=== PATIENT | female | born 1945 | race Caucasian/White ===

== ENCOUNTER → 2023-09-24 12:32 | Outpatient (REF) | payer MEDICARE, SELFPAY | LOC: WOUND 12:32 | PROVIDERS: ATTENDING PHYSICIAN Surgery; FAMILY PHYSICIAN Family Medicine | DX: T81.41XA Infection following a procedure, superficial incisional surgical site, initial encounter (principal); S31.000A Unspecified open wound of lower back and pelvis without penetration into retroperitoneum, initial encounter; Z79.01 Long term (current) use of anticoagulants; E11.65 Type 2 diabetes mellitus with hyperglycemia; I10 Essential (primary) hypertension; I65.23 Occlusion and stenosis of bilateral carotid arteries; X58.XXXA Exposure to other specified factors, initial encounter | CPT/HCPCS: 11042; 99213 ==

== ENCOUNTER → 2023-10-01 10:50 | Outpatient (REF) | payer MEDICARE, SELFPAY | LOC: WOUND 10:50 | PROVIDERS: ATTENDING PHYSICIAN Surgery; FAMILY PHYSICIAN Family Medicine | DX: T81.41XA Infection following a procedure, superficial incisional surgical site, initial encounter (principal); S31.000A Unspecified open wound of lower back and pelvis without penetration into retroperitoneum, initial encounter; Z79.01 Long term (current) use of anticoagulants; E11.65 Type 2 diabetes mellitus with hyperglycemia; I10 Essential (primary) hypertension; I65.23 Occlusion and stenosis of bilateral carotid arteries; X58.XXXA Exposure to other specified factors, initial encounter | CPT/HCPCS: 11042 ==

== ENCOUNTER → 2023-10-10 10:55 | Outpatient (REF) | payer MEDICARE, SELFPAY | LOC: WOUND 10:55 | PROVIDERS: ATTENDING PHYSICIAN Surgery; FAMILY PHYSICIAN Family Medicine | DX: T81.41XA Infection following a procedure, superficial incisional surgical site, initial encounter (principal); S31.000A Unspecified open wound of lower back and pelvis without penetration into retroperitoneum, initial encounter; E11.65 Type 2 diabetes mellitus with hyperglycemia; I10 Essential (primary) hypertension; I65.23 Occlusion and stenosis of bilateral carotid arteries; Z79.01 Long term (current) use of anticoagulants; Y83.8 Other surgical procedures as the cause of abnormal reaction of the patient, or of later complication, without mention of misadventure at the time of the procedure; X58.XXXA Exposure to other specified factors, initial encounter | CPT/HCPCS: 11042 ==

== ENCOUNTER → 2023-10-17 11:00 | Outpatient (REF) | payer MEDICARE, SELFPAY | LOC: WOUND 11:00 | PROVIDERS: ATTENDING PHYSICIAN Surgery; FAMILY PHYSICIAN Family Medicine | DX: T81.41XA Infection following a procedure, superficial incisional surgical site, initial encounter (principal); S31.000A Unspecified open wound of lower back and pelvis without penetration into retroperitoneum, initial encounter; Z79.01 Long term (current) use of anticoagulants; E11.65 Type 2 diabetes mellitus with hyperglycemia; I10 Essential (primary) hypertension; I65.23 Occlusion and stenosis of bilateral carotid arteries; X58.XXXA Exposure to other specified factors, initial encounter | CPT/HCPCS: 97597 ==

== ENCOUNTER → 2023-10-21 11:28 | Outpatient (REF) | payer MEDICARE, SELFPAY ==
[2023-10-21 12:26] LABS: % Basophils 0.3 % (0-2); % Eosinophils 2.6 % (0-6); % Immature Granulocytes 0.3 % (0-0.5); % Monocytes 9.5 % (1.7-9.3); % Neutrophils 60.3 % (42.2-75.2); Absolute Eosinophils 0.2 10^3/uL (0-0.7); Absolute Lymphocytes 1.9 10^3/uL (1.2-3.4); Absolute Monocytes 0.7 10^3/uL (0.1-0.6); Absolute Neutrophils 4.3 10^3/uL (1.4-6.5); Hemoglobin 12.9 g/dL (12.0-16.0); Mean Corp Hgb Conc. 33.9 g/dL (33.0-37.0); Mean Corpuscular Hgb 33.2 pg (27.0-31.0); Mean Corpuscular Volume 97.7 fL (81.0-99.0); Mean Platelet Volume 9.8 fL (7.4-10.4); Nucleated Red Blood Cells % 0 %; Platelet Count 276 10^3/uL (130-400); Red Blood Cell Count 3.89 10^6/uL (4.20-5.40); Red Cell Dist. Width 13.6 % (11.5-14.5); White Blood Cell Count 7.2 10^3/uL (4.8-10.8)
[2023-10-21 13:34] LABS: Blood Urea Nitrogen 32 mg/dl (7-17); Calcium 10.4 mg/dl (8.4-10.2); Carbon Dioxide 27 mmol/L (22-30); Chloride 95 mmol/L (98-107); Glucose 82 mg/dl (70-99); Sodium 135 mmol/L (135-145); eGFR > 60.00
[2023-10-25 20:14] LABS: Albumin 4.34 g/dL (3.75-5.01); Alpha 1 Globulin 0.34 g/dL (0.19-0.46); Alpha 2 Globulin 1.01 g/dL (0.48-1.05); Free Kappa Light Chains,Quant 34.87 mg/L (3.30-19.40); Free Lambda Light Chains,Quant 17.61 mg/L (5.71-26.30); IgA 847 mg/dL (68-408); IgG 603 mg/dL (768-1632); IgM 43 mg/dL (35-263); Immunofixation Electrophoresis IFE Done; Kappa/Lambda Fr Light Ratio 1.98 (0.26-1.65); Monoclonal Protein 0.86 g/dL (<=0.00); Total Protein-Electrophoresis 7.8 g/dL (6.3-8.2)
== END ==
LOC: REG 11:28
PROVIDERS: ATTENDING PHYSICIAN Internal Medicine Hematology & Oncology; FAMILY PHYSICIAN Family Medicine
DX: D47.2 Monoclonal gammopathy (principal)
CPT/HCPCS: 36415; 80048; 82784; 83521; 84155; 84165; 85025; 86334

== ENCOUNTER → 2023-10-24 13:54 | Outpatient (REF) | payer MEDICARE, SELFPAY | LOC: WOUND 13:54 | PROVIDERS: ATTENDING PHYSICIAN Surgery; FAMILY PHYSICIAN Family Medicine | DX: T81.41XA Infection following a procedure, superficial incisional surgical site, initial encounter (principal); S31.000A Unspecified open wound of lower back and pelvis without penetration into retroperitoneum, initial encounter; E11.65 Type 2 diabetes mellitus with hyperglycemia; I10 Essential (primary) hypertension; I65.23 Occlusion and stenosis of bilateral carotid arteries; Z79.01 Long term (current) use of anticoagulants; X58.XXXA Exposure to other specified factors, initial encounter | CPT/HCPCS: 99212 ==

== ENCOUNTER → 2023-12-31 07:31 | Outpatient (REF) | payer MEDICARE, SELFPAY ==
[2023-12-31 09:40] LABS: Urine Albumin Negative (Neg - Trace); Urine Bilirubin Negative (Negative); Urine Character Clear (Clear); Urine Color Yellow; Urine Glucose Negative (Negative); Urine Ketone Negative (Negative); Urine Leukocyte Trace (Negative); Urine Nitrite Negative (Negative); Urine Occult Blood Negative (Negative); Urine Specific Gravity 1.005 (<1.030); Urine Urobilinogen Negative (Neg - 1+)
[2023-12-31 09:42] LABS: % Basophils 0.5 % (0-2); % Eosinophils 3.8 % (0-6); % Immature Granulocytes 0.3 % (0-0.5); % Lymphocytes 28.8 % (20.5-51.1); % Monocytes 10.1 % (1.7-9.3); % Neutrophils 56.5 % (42.2-75.2); Absolute Eosinophils 0.2 10^3/uL (0-0.7); Absolute Lymphocytes 1.7 10^3/uL (1.2-3.4); Absolute Monocytes 0.6 10^3/uL (0.1-0.6); Absolute Neutrophils 3.3 10^3/uL (1.4-6.5); Hematocrit 34.1 % (37.0-47.0); Hemoglobin 11.7 g/dL (12.0-16.0); Mean Corp Hgb Conc. 34.3 g/dL (33.0-37.0); Mean Corpuscular Hgb 33.6 pg (27.0-31.0); Mean Platelet Volume 9.8 fL (7.4-10.4); Nucleated Red Blood Cells % 0 %; Platelet Count 240 10^3/uL (130-400); Red Blood Cell Count 3.48 10^6/uL (4.20-5.40); Red Cell Dist. Width 13.4 % (11.5-14.5); White Blood Cell Count 5.8 10^3/uL (4.8-10.8)
[2023-12-31 09:58] LABS: ALT (SGPT) 19 U/L (0-35); AST (SGOT) 30 U/L (14-36); Albumin 4.3 g/dl (3.5-5.0); Alkaline Phosphatase 110 U/L (38-126); Blood Urea Nitrogen 47 mg/dl (7-17); Calcium 9.9 mg/dl (8.4-10.2); Carbon Dioxide 27 mmol/L (22-30); Chloride 99 mmol/L (98-107); Glucose 91 mg/dl (70-99); HDL Cholesterol 57 mg/dl; LDL Cholesterol, Calculated 69 mg/dl; Potassium 4.5 mmol/L (3.5-5.1); Sodium 139 mmol/L (135-145); Total Bilirubin 0.5 mg/dl (0.2-1.3); Total Cholesterol 144 mg/dl (50-199); Total Protein 7.2 g/dl (6.3-8.2); Triglyceride 91 mg/dl (10-149); Very Low Density Lipoprotein 18 mg/dl (0-30); eGFR 45.76
[2023-12-31 10:24] LABS: TSH Reflex To Free T4 3.23 uIU/ml (0.47-4.68)
[2023-12-31 10:38] LABS: Urine Bacteria Few (Negative); Urine Red Blood Cell 0-2 /HPF (0-2); Urine White Cell 0-2 /HPF (0-5)
[2023-12-31 11:58] LABS: Glycohemoglobin (HgbA1c) 5.8 % (4.0-5.6)
[2024-01-01 20:58] LABS: 24 Hour Urine Total Volume Random mL; Urine Collection Length Random hr; Urine Free Kappa Light Chains 3.44 mg/L (0.00-32.90); Urine Free Lambda Light Chains <0.74 mg/L (0.00-3.79)
[2024-01-03 02:22] LABS: Albumin 3.95 g/dL (3.75-5.01); Alpha 1 Globulin 0.26 g/dL (0.19-0.46); Alpha 2 Globulin 0.85 g/dL (0.48-1.05); Monoclonal Protein 0.85 g/dL (<=0.00); SPEP IFE Reflex IFE Done
== END ==
LOC: HWLAB 07:31
PROVIDERS: ATTENDING PHYSICIAN Family Medicine
DX: D47.2 Monoclonal gammopathy (principal); R73.09 Other abnormal glucose; Z00.00 Encounter for general adult medical examination without abnormal findings; E78.5 Hyperlipidemia, unspecified; I10 Essential (primary) hypertension
CPT/HCPCS: 36415; 80053; 80061; 81003; 81015; 83036; 83521; 84155; 84156; 84165; 84443; 85025; 86335

== ENCOUNTER → 2024-01-09 08:44 | Outpatient (REF) | payer MEDICARE, SELFPAY | LOC: RAD 08:44 | PROVIDERS: ATTENDING PHYSICIAN Physician Assistant; FAMILY PHYSICIAN Family Medicine | DX: I73.9 Peripheral vascular disease, unspecified (principal); I65.23 Occlusion and stenosis of bilateral carotid arteries | CPT/HCPCS: 93880; 93922; 93925; 93978 ==

== ENCOUNTER → 2024-04-23 13:58 | Outpatient (REF) | payer MEDICARE, SELFPAY ==
[2024-04-23 15:05] LABS: % Basophils 0.5 % (0-2); % Eosinophils 3.6 % (0-6); % Immature Granulocytes 0.2 % (0-0.5); % Lymphocytes 34.5 % (20.5-51.1); % Monocytes 9.6 % (1.7-9.3); % Neutrophils 51.6 % (42.2-75.2); Absolute Eosinophils 0.2 10^3/uL (0-0.7); Absolute Lymphocytes 2.1 10^3/uL (1.2-3.4); Absolute Monocytes 0.6 10^3/uL (0.1-0.6); Absolute Neutrophils 3.2 10^3/uL (1.4-6.5); Hematocrit 34.8 % (37.0-47.0); Hemoglobin 12.1 g/dL (12.0-16.0); Mean Corp Hgb Conc. 34.8 g/dL (33.0-37.0); Mean Corpuscular Hgb 35.2 pg (27.0-31.0); Mean Corpuscular Volume 101.2 fL (81.0-99.0); Mean Platelet Volume 9.3 fL (7.4-10.4); Nucleated Red Blood Cells % 0 %; Platelet Count 217 10^3/uL (130-400); Red Blood Cell Count 3.44 10^6/uL (4.20-5.40); Red Cell Dist. Width 12.6 % (11.5-14.5); White Blood Cell Count 6.2 10^3/uL (4.8-10.8)
[2024-04-23 15:27] LABS: IgA 742 mg/dl (70-400); IgG 642 mg/dl (700-1600); IgM 33 mg/dl (40-230)
[2024-04-23 15:30] LABS: Blood Urea Nitrogen 37 mg/dl (7-17); Calcium 9.8 mg/dl (8.4-10.2); Carbon Dioxide 25 mmol/L (22-30); Chloride 101 mmol/L (98-107); Glucose 92 mg/dl (70-99); Potassium 4.8 mmol/L (3.5-5.1); Sodium 139 mmol/L (135-145); eGFR 45.48
== END ==
LOC: RAD 13:58
PROVIDERS: ATTENDING PHYSICIAN Nurse Practitioner Adult Health; FAMILY PHYSICIAN Family Medicine
DX: D47.2 Monoclonal gammopathy (principal)
CPT/HCPCS: 36415; 80048; 82784; 83521; 84155; 84165; 85025; 86334

== ENCOUNTER 2024-04-30 14:56 | Observation (INO) | payer MEDICARE, SELFPAY ==
[2024-04-30] VITALS (9 sets, daily range): BP systolic 86–126; BP diastolic 31–77; BMI 36.1; BMI 33.5
--- NOTE | 2024-04-30 13:05 | ED.GENMED ---
History of Present Illness
General
Chief Complaint: Fever
Time Seen by Provider: 04/30/24 12:59
History of Present Illness
History of Present Illness:
79-year-old female with history of A-fib on Eliquis, hypertension, CKD, anemia presenting to the emergency department for generalized weakness. Patient reportedly weak this morning, unable to a ambulate. On arrival, patient noted to be febrile.
Patient without specific complaints. Does admit to generalized weakness, however denies cough, abdominal pain, chest pain, difficulty breathing, dysuria. Patient is slightly slow to respond, somewhat limited historian. No additional history
obtained at this time
Past History
Past History
ED Past Medical History: HTN, Hypercholesterolemia and Other (sleep apnea, monoclonal gammopathy)
ED Past Surgical History: Appendectomy, Orthopedic and Other (lumpectomy)
Social History
Tobacco: Non-smoker
Alcohol: None
Drug: None
Personal:
Living: with family
Phy Exam
Physical Exam
Physical Exam:
General: Warm to touch, slow to respond
HEENT: protecting airway
Neck: appears supple
CV: Normal heart rate, regular rhythm
Resp: No accessory muscle use, no increased work of breathing, lungs clear to auscultation bilaterally
Abd: Soft and non-distended, no tenderness to palpation, normal bowel sounds
Extremities: No deformities, no swelling, no erythema. 4/5 weakness of bilateral lower extremities, symmetric
Neuro: alert, oriented and able to answer questions appropriately, however slow to respond.
: deferred
Rectal: deferred
Psych: Normal affect
Skin: Intact
Sepsis
Sepsis Screening
Sepsis Assessment: Sepsis Ruled Out
Sepsis Screen
Sepsis Screen: Sepsis Ruled Out
Date: 04/30/24
Time: 15:31
Course
Orders/Labs/Results
Orders:
Orders
04/30/24 12:54
Electrocardiogram (*1) Urgent
Reason for Study: Other
Other Reason for Exam: Possible Sepsis
Pulse Ox/cont/shift [RESP] Urgent
Quantity: 1
Special Instructions: CONTINUOUS
04/30/24 12:55
EKG- Treatment ONCE
04/30/24 13:04
COVID-19 Antigen Urgent
Source: Nasal Swab
Complete Blood Count/With Diff Urgent
Comprehensive Metabolic Panel Urgent
Lactic Acid Q4H
Comment: ON ICE, CANCEL 2ND ORDER IF FIRST LACTIC ACID LEVEL <2
Urinalysis Reflex To Culture Urgent
Date Specimen was Collected: 04/30/24
Time Specimen was Collected: 12:55
Blood Culture Urgent
MELISSA Source: Blood/Venous
Specimen Description:
Blood Culture Urgent
MELISSA Source: Blood/Venous
Specimen Description:
INF RAPID [Influenza A+B Rapid Molecular] Urgent
MELISSA Source: Nasal Swab
Specimen Description:
04/30/24 13:08
Chest [CR Chest - 2 Views ] Urgent
Comment:
Reason For Exam: fever
04/30/24 13:14
0.9% Sodium Chloride 1000 ml [Nss] 1,000 ml IV BOLUS
Acetaminophen [Tylenol] 1,000 mg PO NOW STA
04/30/24 14:25
Admit/Transfer Patient As Directed
Co-Sign Provider:
Level of Care: Observation services
Assign to:: Medical/Surgical
Physician / Group: mary
Diagnosis: covid weakness
PRN Pain Medication Management As Directed
May give lesser potent ordered pain med per pt: Yes
preference::
Protocol:: Medication orders for pain may be administered in a
manner that supports deferring to patient preference
when the pt is:
- Requesting an ordered lesser potent pain medication.
Least to most potent pain medications are defined
as: acetaminophen < NSAID < tramadol < opioids
(morphine, oxycodone, hydromorphone).
- Requesting a lesser dose of the same medication IF
ORDERED.
- Requesting a less intrusive route of administration
if both routes are prescribed by the provider (PO <
IV).
04/30/24 14:26
Code Status As Directed
Resuscitation Status: Full Code
04/30/24 17:00
Lactic Acid Q4H
Comment: ON ICE, CANCEL 2ND ORDER IF FIRST LACTIC ACID LEVEL <2
Abnormal Lab Results
04/30/24
13:04
WBC 14.0 H 10^3/uL
(4.8-10.8)
RBC 3.70 L 10^6/uL
(4.20-5.40)
Hct 35.5 L %
(37.0-47.0)
MCH 33.2 H pg
(27.0-31.0)
Abs Immat Gran (auto) 0.2 H 10^3/uL
(0-0.05)
Absolute Neuts (auto) 12.3 H 10^3/uL
(1.4-6.5)
Absolute Lymphs (auto) 0.6 L 10^3/uL
(1.2-3.4)
Absolute Monos (auto) 0.9 H 10^3/uL
(0.1-0.6)
Immature Gran % 1.1 H %
(0-0.5)
Neutrophils % 87.6 H %
(42.2-75.2)
Lymphocytes % 4.3 L %
(20.5-51.1)
BUN 42 H mg/dl
(7-17)
Creatinine 1.2 H mg/dL
(0.6-1.0)
Glucose 111 H mg/dl
(70-99)
AST 37 H U/L
(14-36)
SARS-CoV-2 Antigen Positive A
(Negative)
04/30/24 13:04
04/30/24 13:04
Vital Signs
Initial and Last Documented VS:
Initial Vital Signs
BP
126/52
04/30/24 12:55
Last Documented Vital Signs
Temp Pulse Resp BP Pulse Ox
103.3 F H 71 23 105/39 93
04/30/24 12:58 04/30/24 15:00 04/30/24 15:00 04/30/24 15:00 04/30/24 15:00
MDM/Problems Addressed
MDM/Problems Addressed:
79-year-old female with history of A-fib on Eliquis, hypertension, hyperlipidemia, CKD presenting for generalized weakness and suspected confusion. Vital signs on arrival are significant for fever.
On exam, patient is awake and alert, however does appear slightly confused and slow to respond, however is awake, alert, oriented. Patient is febrile, with suspected infectious etiology, possible sepsis as reason for patient's presenting weakness
and fatigue. Unclear source of patient's fever at this time. Patient without specific symptoms. Will obtain laboratory analysis, blood cultures, lactic acid. Will start IV fluids. Will also send viral panel, urinalysis
14:00 -urine without sign of infection. Patient's COVID is positive. Chest x-ray without significant sign of infection. Holding antibiotics, with suspected source at this time COVID. Given patient's confusion, weakness with difficulty
ambulating, plan for admission
*EKG
Interpreted by ED Provider?: Yes
EKG Intrepretation Date: 04/30/24
EKG Intrepretation Time: 13:33
Interpretation: normal
Heart Rate: 75
Rate: normal
Rhythm: other (AV dual paced)
[place]: normal axis
Interval: normal interval
Ischemia: no ischemia
*Critical Care Note
Total Time (30-74mins, 75-104mins- exclusive of procedures): Not Applicable
ED Attending Note
-
Portions of this chart may have been created with voice recognition software.� Occasional wrong word or��sound alike� substitutions may have occurred due to the inherent limitations of voice recognition software.
Discharge Plan
Departure
Patient Disposition: Admit
Date of Disposition: 04/30/24
Time of Disposition: 14:03
Presentation/result/management discussed w/ accepting MD/DO: Hospitalist
Condition: Fair
Discharge Problem:
COVID-19, Weakness, Acute confusion
Interventions
Interventions:
*Risk Screen - Suicide Last Done: 04/30/24 12:58
*General Assessment Last Done: 04/30/24 12:58
*Neglect/Abuse Screening Last Done: 04/30/24 12:58
*ED COVID-19 Vaccine History Last Done: 04/30/24 13:03
ED- Cardiac Assessment Last Done: 04/30/24 13:05
ED- Neurological Assessment Last Done: 04/30/24 13:05
ED- Pulmonary Assessment Last Done: 04/30/24 13:05
ED-Skin Assessment Last Done: 04/30/24 13:05
[2024-04-30 13:22] LABS: Urine Albumin Negative (Neg - Trace); Urine Bilirubin Negative (Negative); Urine Character Clear (Clear); Urine Color Yellow; Urine Glucose Negative (Negative); Urine Ketone Negative (Negative); Urine Leukocyte Negative (Negative); Urine Nitrite Negative (Negative); Urine Occult Blood Negative (Negative); Urine Urobilinogen Negative (Neg - 1+)
[2024-04-30] MEDS: NSS 1000 IV ×2 (13:22→16:27)
[2024-04-30] MEDS: TYLENOL 1000 MG PO (13:23)
[2024-04-30 13:27] LABS: % Basophils 0.2 % (0-2); % Eosinophils 0.4 % (0-6); % Immature Granulocytes 1.1 % (0-0.5); % Lymphocytes 4.3 % (20.5-51.1); % Monocytes 6.4 % (1.7-9.3); % Neutrophils 87.6 % (42.2-75.2); Absolute Eosinophils 0.1 10^3/uL (0-0.7); Absolute Immature Granulocytes 0.2 10^3/uL (0-0.05); Absolute Lymphocytes 0.6 10^3/uL (1.2-3.4); Absolute Monocytes 0.9 10^3/uL (0.1-0.6); Absolute Neutrophils 12.3 10^3/uL (1.4-6.5); Hematocrit 35.5 % (37.0-47.0); Hemoglobin 12.3 g/dL (12.0-16.0); Mean Corp Hgb Conc. 34.6 g/dL (33.0-37.0); Mean Corpuscular Hgb 33.2 pg (27.0-31.0); Mean Corpuscular Volume 95.9 fL (81.0-99.0); Nucleated Red Blood Cells % 0 %; Platelet Count 201 10^3/uL (130-400); Red Cell Dist. Width 12.9 % (11.5-14.5)
[2024-04-30 13:33] LABS: ALT (SGPT) 27 U/L (0-35); AST (SGOT) 37 U/L (14-36); Albumin 4.7 g/dl (3.5-5.0); Alkaline Phosphatase 79 U/L (38-126); Blood Urea Nitrogen 42 mg/dl (7-17); Calcium 9.8 mg/dl (8.4-10.2); Carbon Dioxide 22 mmol/L (22-30); Chloride 99 mmol/L (98-107); Estimated Creatinine Clearance 37 ml/min; Glucose 111 mg/dl (70-99); Potassium 4.7 mmol/L (3.5-5.1); Sodium 138 mmol/L (135-145); Total Bilirubin 0.6 mg/dl (0.2-1.3); Total Protein 7.5 g/dl (6.3-8.2); eGFR 45.48
[2024-04-30 13:34] LABS: Lactic Acid 1.8 mmol/L (0.7-2.0)
[2024-04-30 13:41] LABS: COVID-19 Antigen Positive (Negative)
--- NOTE | 2024-04-30 14:28 | HPS.HSE ---
Family Physician
-
Family Physician: Rosas Mora
Chief Complaint
-
weakness
History of Present Illness
79-year-old female past medical history of atrial fibrillation on Eliquis, tachybradycardia syndrome status post permanent pacemaker, peripheral vascular disease, right carotid endarterectomy, CVA, CAD with stent, hypertension, obstructive sleep
apnea, left bundle branch block, hyperlipidemia, CKD 3B, anemia of chronic disease, diabetes, hemochromatosis, gout, spinal stenosis/osteoarthritis, monoclonal gammopathy of unknown significance, chronic urinary continence, breast cancer status post
lumpectomy presenting with generalized weakness. She was weak this morning and unable to ambulate. He is having fevers and chills. He is having headache and bodyaches and sore throat. She was febrile on arrival. She denies cough, abdominal
pain, vomiting or diarrhea, chest pain or difficulty breathing or burning with urination. She denies any sick contacts.
Denies smoking or alcohol use.
Medical History
Past Medical History
Past Medical History: Reports Other (atrial fibrillation on Eliquis, tachybradycardia syndrome status post permanent pacemaker, peripheral vascular disease, right carotid endarterectomy, CVA, CAD with stent, hypertension, obstructive sleep apnea,
left bundle branch block, hyperlipidemia, CKD 3B, anemia of chronic disease, diabetes, hem)
Past Surgical History: Reports Other (Appendectomy, Orthopedic and Other (lumpectomy))
Social History
Tobacco: Non-smoker
Alcohol: None
Drug: None
Family History
Family History: Not pertinent
Allergies / Home Medications
Allergies reflects when Allergies were last updated in [facility].
Home Medications with original date entered in [facility]
Allergy/Medication List:
Allergies
Allergy/AdvReac Type Severity Reaction Status Date / Time
Penicillins Allergy Hives Verified 04/30/24 12:53
Sulfa (Sulfonamide Allergy Hives Verified 04/30/24 12:53
Antibiotics)
Home Medications
multivitamin with folic acid 400 mcg tablet (Tab-A-Vale) 1 tab PO DAILY Supplement 02/17/19
magnesium oxide 200 mg PO Q48H Electrolyte Repletion 11/13/21
allopurinol 100 mg tablet 100 mg PO BID Gout 02/15/23
lifitegrast 5 % eye drops in a dropperette (Xiidra) 1 drp BOTH EYES BID Eye Condition 06/22/23
ramipril 2.5 mg capsule 2.5 mg PO BID Blood Pressure 06/22/23
apixaban 5 mg tablet (Eliquis) 5 mg PO BID Blood clot prevention/tx #60 tabs 06/25/23
atenolol 50 mg tablet 50 mg PO HS 04/30/24
atorvastatin 80 mg tablet 80 mg PO DAILY High cholesterol 04/30/24
cholecalciferol (vitamin D3) 25 mcg (1,000 unit) tablet 75 mcg PO DAILY 04/30/24
solifenacin 5 mg tablet 5 mg PO BID 04/30/24
Review of Systems
-
History Source: Patient
A 12 point ROS was completed and negative except as noted: Yes
Constitutional: Reports No Symptoms
EENT: Reports See HPI
Respiratory: Reports See HPI
Cardiac: Reports No Symptoms
Abdomen/GI: Reports No Symptoms
: Reports No Symptoms
Musculoskeletal: Reports No Symptoms
Skin: Reports No Symptoms
Neurological: Reports No Symptoms
Endocrine: Reports No Symptoms
Hematologic/Lymphatic: Reports No Symptoms
Psych: Reports No Symptoms
Physical Exam
Vital Signs
Vital Signs
Temp Pulse Resp BP Pulse Ox
103.3 F H 69 34 105/31 92
04/30/24 12:58 04/30/24 14:07 04/30/24 14:07 04/30/24 14:07 04/30/24 14:07
Physical Exam
General: Well Developed, Well Nourished and No Apparent Distress
HEENT: NormoCephalic, Moist mucous membranes and Atraumatic
Respiratory: Clear
Cardiac: S1/S2 and Regular Rhythm; No Murmur or Rub
GI: Soft, Non Tender, Non Distended and Normal Bowel Sounds; No Organomegaly
Rectal: Deferred by Provider
Musculoskeletal: No Clubbing, No Cyanosis and No Edema
Skin: No Rash
Neuro: Nonfocal/grossly intact
Laboratory Results
-
04/30/24 13:04
04/30/24 13:04
Laboratory Results
Lactic Acid 1.8 mmol/L (0.7-2.0) 04/30/24 13:04
Total Bilirubin 0.6 mg/dl (0.2-1.3) 04/30/24 13:04
AST 37 U/L (14-36) H 04/30/24 13:04
ALT 27 U/L (0-35) 04/30/24 13:04
Alkaline Phosphatase 79 U/L (38-126) 04/30/24 13:04
Data Reviewed
-
Lab Data: Labs Reviewed by me
Old Records: Reviewed
Impression/Plan
-
IMPRESSION:
PLAN:
# COVID related weakness
-Chest x-ray shows patchy airspace opacities within the right mid/lower lung appears chronic although superimposed infection possible
-Patient saturating 94%
-Hold off steroids
-Fever control
-IV fluids
-PT/OT
Paroxysmal atrial fibrillation
-Continue Eliquis
Tachybradycardia syndrome status post permanent pacemaker
Peripheral vascular disease
Right carotid endarterectomy
CVA
CAD with stent
-Continue statin
Chronic kidney disease
-Renal function at baseline
Essential hypertension
-Continue atenolol/chlorthalidone
-Continue ramipril
Obstructive sleep apnea
Left bundle branch block
Hyperlipidemia
CKD 3B
-Renal function at baseline
Anemia of chronic disease
-Hemoglobin at baseline
Type 2 diabetes
-Not on insulin
Hemochromatosis
Gout
-Continue allopurinol
Spinal stenosis/osteoarthritis
Monoclonal dermopathy of unknown significance
Chronic urinary retention
Breast cancer status post lumpectomy
History of L1-L2 discitis
History of enterococcal bacteremia
Overactive bladder
-Continue Vesicare
Full code
DVT prophylaxis�heparin
Diabetic diet
--- NOTE | 2024-04-30 18:56 | PTCARENOTE ---
Pt arrived to unit from ED at 16:30. Pt stood and pivoted from stretcher to bed w/o incident. Pt c/o generalized weakness, no other complaints. VSS, temp 99.9 Pt assessed, oriented to room and surroundings, AAOx3, call zamorano and belongings within
reach.
[2024-04-30] MEDS: VESICARE 5 MG PO (22:33)
[2024-04-30] MEDS: ALTACE 2.5 MG PO (22:34)
[2024-04-30] MEDS: ELIQUIS 5 MG PO (22:34)
[2024-04-30] MEDS: ZYLOPRIM 100 MG PO (22:34)
[2024-04-30] MEDS: TENORMIN 50 MG PO (22:41)
[2024-05-01 07:38] LABS: % Basophils 0.2 % (0-2); % Eosinophils 0.8 % (0-6); % Immature Granulocytes 0.5 % (0-0.5); % Lymphocytes 12.9 % (20.5-51.1); % Neutrophils 79.6 % (42.2-75.2); Absolute Eosinophils 0.1 10^3/uL (0-0.7); Absolute Immature Granulocytes 0.1 10^3/uL (0-0.05); Absolute Lymphocytes 1.7 10^3/uL (1.2-3.4); Absolute Monocytes 0.8 10^3/uL (0.1-0.6); Absolute Neutrophils 10.4 10^3/uL (1.4-6.5); Hematocrit 29.8 % (37.0-47.0); Hemoglobin 10.6 g/dL (12.0-16.0); Mean Corp Hgb Conc. 35.6 g/dL (33.0-37.0); Mean Corpuscular Hgb 34.6 pg (27.0-31.0); Mean Corpuscular Volume 97.4 fL (81.0-99.0); Mean Platelet Volume 9.4 fL (7.4-10.4); Nucleated Red Blood Cells % 0 %; Platelet Count 163 10^3/uL (130-400); Red Blood Cell Count 3.06 10^6/uL (4.20-5.40); Red Cell Dist. Width 13.2 % (11.5-14.5)
[2024-05-01 07:46] VITALS: BP 110/76
[2024-05-01 07:52] LABS: ALT (SGPT) 20 U/L (0-35); AST (SGOT) 30 U/L (14-36); Albumin 3.5 g/dl (3.5-5.0); Alkaline Phosphatase 70 U/L (38-126); Blood Urea Nitrogen 39 mg/dl (7-17); Calcium 8.9 mg/dl (8.4-10.2); Carbon Dioxide 22 mmol/L (22-30); Chloride 107 mmol/L (98-107); Estimated Creatinine Clearance 35 ml/min; Glucose 91 mg/dl (70-99); Potassium 4.3 mmol/L (3.5-5.1); Sodium 139 mmol/L (135-145); Total Bilirubin 0.5 mg/dl (0.2-1.3); Total Protein 5.9 g/dl (6.3-8.2); eGFR 45.48
[2024-05-01] MEDS: MAGNESIUM OXIDE 250 MG PO (08:05)
[2024-05-01] MEDS: THERAGRAN 1 TABLET PO (08:06)
[2024-05-01] MEDS: ALTACE 2.5 MG PO ×2 (08:06→21:38)
[2024-05-01] MEDS: ELIQUIS 5 MG PO (08:06)
[2024-05-01] MEDS: VESICARE 5 MG PO ×2 (08:06→21:38)
[2024-05-01] MEDS: LIPITOR 80 MG PO (08:06)
[2024-05-01] MEDS: ZYLOPRIM 100 MG PO ×2 (08:06→21:38)
[2024-05-01] MEDS: NSS 1000 IV (08:07)
[2024-05-01] MEDS: VITAMIN D3 (cholecalciferol) 75 MCG PO (08:07)
[2024-05-01 09:59] VITALS: BP 121/49; O2SAT 97
--- NOTE | 2024-05-01 10:16 | PTOTSP ---
pt currently demonstrates ability to complete simple ADLs, functional transfers, ambulation with supervision assistance, assistance to manage IV pole in room. no overt deficits noted; pt reports feeling much better after being in hospital overnight.
pt has support at home from spouse, family; plans to stay on first floor initially to avoid steps. no acute OT needs identified at this time, will sign off.
[2024-05-01 10:18] VITALS: BP 121/49; O2SAT 97
--- NOTE | 2024-05-01 13:49 | W.PN.HOSP.TC ---
Today's Communication/Plan
-
Paxlovid
PT OT
Assessment / Plan
Assessment / Plan
79-year-old female with generalized weakness
Chest x-ray reviewed by me-patchy airspace opacities within right side
CVS: S1-S2 normal
Chest: few scattered rales.
Abdomen: Soft, NT / Bowel sounds present
Extremities: No edema, normal pulses
HYDRO PNEUMATIC TESTER: Non focal exam
# TME due to COVID Resolved
Back to baseline
# COVID-19 infection with pneumonia
Chest exam with rales
Patchy changes on chest x-ray
Will start Paxlovid-discussed with patient and both agreeable
Discussed that we will have to reduce the dose of Eliquis. ( to 2.5 mg BID)
Once she is off of Paxlovid dose of Eliquis need to be brought back to 5 mg twice daily.
# Paroxysmal atrial fibrillation-continue Eliquis, Atenolol
# History of coronary disease with stent placement-Hold statin while on Paxlovid and Eliquis
# Hyperlipidemia-Hold statin while on Paxlovid.
# Anemia likely of chronic disease
# CKD stage IIIb
# Hypertension-continue atenolol and ramipril
# Anemia of chronic disease
# History of CVA
# Type 2 diabetes
# Hemochromatosis
# Sleep apnea-CPAP
# History of tachybradycardia syndrome with pacemaker placement
# LBBB-chronic
# Peripheral vascular disease-history of CEA right side
# MGUS
# Gout-continue allopurinol
# Chronic urinary retention/overactive bladder-on Solifenacin
# Breast cancer with history of lumpectomy
# History of L1-L2 discitis with enterococcal bacteremia
# Sciatica/Ambulator dysfunction spinal stenosis
# History of aneurysm clipping
# Ex-smoker
# DVT prophylaxis-Eliquis
# Full code
D/W at bed side
Anticipated Discharge: Within 24 hours
Subjective/Interval History
-
Date of Service: May 01, 2024
Objective Data
-
Labs:
Laboratory Results
05/01/24
07:02
WBC 13.0 H
Hgb 10.6 L
Hct 29.8 L
Plt Count 163
Sodium 139
Potassium 4.3
Chloride 107
Carbon Dioxide 22
BUN 39 H
Creatinine 1.2 H
Glucose 91
Calcium 8.9
Total Bilirubin 0.5
AST 30
ALT 20
Alkaline Phosphatase 70
Vital Signs:
Vital Signs
Temp Pulse Resp BP Pulse Ox
97.8 F 60 16 143/65 95
05/01/24 07:46 05/01/24 11:39 05/01/24 11:39 05/01/24 08:06 05/01/24 11:39
I&O
04/30/24 05/01/24 05/02/24
06:59 06:59 06:59
Intake Total 840 / 840
Balance 840 / 840
[2024-05-01 15:12] VITALS: BP 112/72
[2024-05-01] MEDS: PAXLOVID 150-100 MG DOSE PACK 1 DOSE PO ×2 (15:48→21:51)
[2024-05-01] MEDS: ELIQUIS 2.5 MG PO (21:38)
[2024-05-01] MEDS: TENORMIN 50 MG PO (21:38)
[2024-05-01 23:23] VITALS: BP 139/56
[2024-05-02 08:01] VITALS: BP 137/57
[2024-05-02] MEDS: ELIQUIS 2.5 MG PO (08:21)
[2024-05-02] MEDS: THERAGRAN 1 TABLET PO (08:22)
[2024-05-02] MEDS: ALTACE 2.5 MG PO (08:22)
[2024-05-02] MEDS: VESICARE 5 MG PO (08:22)
[2024-05-02] MEDS: ZYLOPRIM 100 MG PO (08:22)
[2024-05-02] MEDS: VITAMIN D3 (cholecalciferol) 75 MCG PO (08:22)
--- NOTE | 2024-05-02 08:36 | W.PN.HOSP.TC ---
Today's Communication/Plan
-
d/c
Assessment / Plan
Assessment / Plan
79 F with generalized weakness
Gen: NAD, Awake and alert
Eyes: EOMI, PERRLA, no scleral icterus.
Neck: supple.
CV: RRR, +S1/S2, no m/r/g.
Resp: CTAB, no rales, wheezes, or rhonchi.
Abd: +BS, soft, NT, ND
Skin: No rashes.
Neuro: CN 2-12 intact, non-focal.
Psych: Normal mood and affect.
CXR: Similar appearance of the patchy airspace opacities within the right mid/lower lung, favoring chronic change although superimposed infection would be difficult to exclude.
Acute COVID PNA:
-Acute metabolic encephalopathy due to COVID, resolved
-CXR above
-Paxlovid started because of this Eliquis had to be reduced and statin had to be stopped. In my opinion the risk of Paxlovid outweighs any benefit at this time. This patient is saturating well on room air. I would stop the patient's Paxlovid and
discharged her on her home medications.
Other problems:
Paroxysmal atrial fibrillation: continue Eliquis/BB
CAD with h/o stent: cont BB. Restart statin.
Hyperlipidemia: Restart statin.
Anemia likely of chronic disease
CKD3b
Essential Hypertension: cont BB/ramipril
h/o CVA: Increase Eliquis back to 5 mg twice daily and restart statin
DM2
Hemochromatosis
ROSS: cont CPAP
h/o SSS s/p PPM
LBBB
PAD with h/o R-CEA
MGUS
Gout: continue allopurinol
Chronic urinary retention/overactive bladder: cont Solifenacin
Breast CA with h/o lumpectomy
h/o L1-L2 discitis with enterococcal bacteremia
Sciatica/Ambulator dysfunction/spinal stenosis
h/o aneurysm clipping
FULL/Eliquis
Medically cleared for discharge. Case management aware.
Total time spent on d/c = 31 min. This included today's physical exam, progress note, review of laboratory and diagnostic data, preparation of discharge documents and prescriptions, and discussions about the pt's hospital course and discharge plan
with the patient and other medical collections involved in the patient's care.
Anticipated Discharge: Today
Subjective/Interval History
-
Date of Service: May 02, 2024
Objective Data
-
Labs:
Laboratory Results
05/02/24
06:00
WBC Pending
Hgb Pending
Hct Pending
Plt Count Pending
Sodium Pending
Potassium Pending
Chloride Pending
Carbon Dioxide Pending
BUN Pending
Creatinine Pending
Glucose Pending
Calcium Pending
Vital Signs:
Vital Signs
Temp Pulse Resp BP Pulse Ox
98.3 F 64 20 139/56 96
05/01/24 23:23 05/01/24 23:23 05/01/24 23:23 05/01/24 23:23 05/01/24 23:23
I&O
05/01/24 05/02/24 05/03/24
06:59 06:59 06:59
Intake Total 840 / 840 1640 / 1640
Balance 840 / 840 1640 / 1640
[2024-05-02] MEDS: PAXLOVID 150-100 MG DOSE PACK 1 DOSE PO (09:01)
--- NOTE | 2024-05-02 10:20 | CM ---
Alert awake oriented patient who lives with her Terry in a 2 story home with 0 steps to enter and 0 steps to bed/bathroom. She is independent in activates of daily living.She does not drive .She uses a walker.She is here will Covid. BHANDARI
letter explained to her all questions answered.She said she was ready for dc.She said her Terry will drive her home.Offered VN she declined.
Had [facility] in past . No [facility]x
Pharmacy [facility]
PCP Dr Mora
PLAN Home no needs
[2024-05-02] MEDS: FLUAD (65 yr+) 2024-2025 FORMULA 0.5 ML IM (11:25)
--- NOTE | 2024-05-03 14:09 | W.DCSUMMARY ---
Discharge Summary
Discharge Data
Date of Admission: 04/30/24
Date of Discharge: 05/02/24
-
Pending Results: No
Hospital Course
Primary diagnoses:
Acute metabolic encephalopathy due to acute COVID-pneumonia
Secondary diagnoses:
Paroxysmal atrial fibrillation
Coronary artery disease with h/o stent
Hyperlipidemia
Anemia likely of chronic disease
Chronic kidney disease stage 3b
Essential Hypertension
h/o cerebrovascular accident
Type 2 diabetes mellitus
Hemochromatosis
Obstructive sleep apnea
h/o sick sinus syndrome s/p permanent pacemaker
Chronic left bundle branch block
Peripheral arterial with h/o R-carotid endarterectomy
Monoclonal gammopathy of unknown significance
Gout
Chronic urinary retention/overactive bladder
Breast cancer with h/o lumpectomy
h/o L1-L2 discitis with enterococcal bacteremia
Sciatica
Ambulatory dysfunction
Spinal stenosis
h/o aneurysm clipping
Obesity due to excess calories
Consultants:
None
Imaging:
CXR: Similar appearance of the patchy airspace opacities within the right mid/lower lung, favoring chronic change although superimposed infection would be difficult to exclude.
Hospital course: 79-year-old female who presented with a chief complaint of weakness is on the H&P done on admission. Imaging above. The patient had a fever on admission but she was saturating well on room air. Patient had acute metabolic
encephalopathy which resolved. She never required supplemental oxygen and was never hemodynamically unstable. Patient was started on Paxlovid but because of this her Eliquis had to be decreased and her statin had to be stopped. As the risks
associate with these medication changes outweighed any potential benefit her Paxil bid was stopped and her home doses of Eliquis and statin were resumed. She was discharged in medically stable condition.
Discharge Plan
-
Patient Disposition: Home (Routine Discharge)
Discharge Diagnosis/Procedures: Acute COVID infection
Condition: Good
Diet: Low Cholesterol and Other diet
Additional Diets: Heart healthy
Activity: As tolerated
Driving Restrictions: As prior to admission
Bathing Restrictions: None
Referrals:
Rosas Mora, DO [Family Provider] - in less than 1 week
Prescriptions:
Continued
multivitamin with folic acid [Tab-A-Vale] 1 TABLET tablet
1 tab PO DAILY
magnesium oxide 400 MG tablet
200 mg PO Q48H
allopurinol 100 mg Tablet
100 mg PO BID
ramipril 2.5 mg capsule
2.5 mg PO BID
Xiidra 5 % dropperette
1 drp BOTH EYES BID
Eliquis 5 mg tablet
5 mg PO BID Qty: 60 0RF
atenolol 50 mg tablet
50 mg PO HS
solifenacin 5 mg tablet
5 mg PO BID
cholecalciferol (vitamin D3) 25 mcg (1,000 unit) Tablet
75 mcg PO DAILY
atorvastatin 80 MG tablet
80 mg PO DAILY
Discharge Orders:
Discharge Patient (As Directed); Ordered 05/02/24
Ordered By: Andrew Estrada
Discharge Date and Time
Discharge Date/Time: 05/02/24 11:40
Print Language: SETS[place]
== END 2024-05-02 11:40 | disposition home or self-care (01) ==
LOC: 3 WEST ACU 14:56
PROVIDERS: ADMITTING PHYSICIAN Hospitalist; ATTENDING PHYSICIAN Internal Medicine; EMERGENCY PHYSICIAN Student in an Organized Health Care Education/Training Program; FAMILY PHYSICIAN Family Medicine
DX: U07.1 COVID-19 (principal); J12.82 Pneumonia due to coronavirus disease 2019; G93.41 Metabolic encephalopathy; R50.9 Fever, unspecified; R53.1 Weakness; R26.2 Difficulty in walking, not elsewhere classified; I48.0 Paroxysmal atrial fibrillation; E66.09 Other obesity due to excess calories; I12.9 Hypertensive chronic kidney disease with stage 1 through stage 4 chronic kidney disease, or unspecified chronic kidney disease; N18.32 Chronic kidney disease, stage 3b; D47.2 Monoclonal gammopathy; E78.00 Pure hypercholesterolemia, unspecified; G47.33 Obstructive sleep apnea (adult) (pediatric); R33.9 Retention of urine, unspecified; N32.81 Overactive bladder; D63.8 Anemia in other chronic diseases classified elsewhere; E83.119 Hemochromatosis, unspecified; I25.10 Atherosclerotic heart disease of native coronary artery without angina pectoris; I44.7 Left bundle-branch block, unspecified; E11.51 Type 2 diabetes mellitus with diabetic peripheral angiopathy without gangrene; E11.22 Type 2 diabetes mellitus with diabetic chronic kidney disease; M10.9 Gout, unspecified; M19.90 Unspecified osteoarthritis, unspecified site; Z90.49 Acquired absence of other specified parts of digestive tract; Z79.01 Long term (current) use of anticoagulants; Z23 Encounter for immunization; Z95.0 Presence of cardiac pacemaker; Z85.3 Personal history of malignant neoplasm of breast; Z95.5 Presence of coronary angioplasty implant and graft; Z86.73 Personal history of transient ischemic attack (TIA), and cerebral infarction without residual deficits; Z88.0 Allergy status to penicillin; Z88.2 Allergy status to sulfonamides; Z87.891 Personal history of nicotine dependence; Z68.33 Body mass index [BMI] 33.0-33.9, adult
CPT/HCPCS: 71046; 80053; 81003; 83605; 85025; 87040; 87502; 87811; 90662; 93005; 96360; 97162; 97166; 99285; G0008; G0378

== ENCOUNTER → 2024-08-20 11:21 | Outpatient (REF) | payer MEDICARE, SELFPAY | LOC: HWWDC 11:21 | PROVIDERS: ATTENDING PHYSICIAN Family Medicine; REFERRING PHYSICIAN Internal Medicine Hematology & Oncology | DX: Z12.31 Encounter for screening mammogram for malignant neoplasm of breast (principal) | CPT/HCPCS: 77063; 77067 ==

== ENCOUNTER → 2024-12-14 07:38 | Outpatient (REF) | payer MEDICARE, SELFPAY ==
[2024-12-14 09:45] LABS: % Basophils 0.3 % (0-2); % Eosinophils 3.2 % (0-6); % Immature Granulocytes 0.4 % (0-0.5); % Monocytes 7.8 % (1.7-9.3); % Neutrophils 59.3 % (42.2-75.2); Absolute Eosinophils 0.2 10^3/uL (0-0.7); Absolute Monocytes 0.5 10^3/uL (0.1-0.6); Absolute Neutrophils 4.1 10^3/uL (1.4-6.5); Hematocrit 35.9 % (37.0-47.0); Hemoglobin 12.2 g/dL (12.0-16.0); Mean Corpuscular Hgb 34.5 pg (27.0-31.0); Mean Corpuscular Volume 101.4 fL (81.0-99.0); Mean Platelet Volume 9.3 fL (7.4-10.4); Nucleated Red Blood Cells % 0 %; Platelet Count 247 10^3/uL (130-400); Red Blood Cell Count 3.54 10^6/uL (4.20-5.40); Red Cell Dist. Width 12.6 % (11.5-14.5); White Blood Cell Count 6.9 10^3/uL (4.8-10.8)
[2024-12-14 10:01] LABS: ALT (SGPT) 19 U/L (0-35); AST (SGOT) 24 U/L (14-36); Alkaline Phosphatase 66 U/L (38-126); Blood Urea Nitrogen 44 mg/dl (7-17); Calcium 9.3 mg/dl (8.4-10.2); Carbon Dioxide 29 mmol/L (22-30); Chloride 104 mmol/L (98-107); Glucose 102 mg/dl (70-99); HDL Cholesterol 41 mg/dl; Iron 115 ug/dl (37-170); LDL Cholesterol, Calculated 57 mg/dl; Potassium 4.9 mmol/L (3.5-5.1); Sodium 141 mmol/L (135-145); Total Bilirubin 0.5 mg/dl (0.2-1.3); Total Cholesterol 140 mg/dl (50-199); Triglyceride 213 mg/dl (10-149); Uric Acid 5.8 mg/dl (2.5-6.2); Very Low Density Lipoprotein 42 mg/dl (0-30); eGFR 41.31
[2024-12-14 10:10] LABS: Percent Saturation 39 % (20-50); Total Iron Binding Capacity 288 ug/dl (265-497)
[2024-12-14 10:33] LABS: Ferritin 70.2 ng/ml (11.1-264.0)
[2024-12-14 12:12] LABS: Glycohemoglobin (HgbA1c) 5.7 % (4.0-5.6)
== END ==
LOC: HWLAB 07:38
PROVIDERS: ATTENDING PHYSICIAN Family Medicine
DX: I10 Essential (primary) hypertension (principal); E78.5 Hyperlipidemia, unspecified; E61.1 Iron deficiency; R73.09 Other abnormal glucose
CPT/HCPCS: 36415; 80053; 80061; 82728; 83036; 83540; 83550; 84550; 85025

== ENCOUNTER → 2025-01-14 12:44 | Outpatient (REF) | payer MEDICARE, SELFPAY | LOC: RAD 12:44 | PROVIDERS: ATTENDING PHYSICIAN Surgery Vascular Surgery; FAMILY PHYSICIAN Family Medicine | DX: I65.23 Occlusion and stenosis of bilateral carotid arteries (principal); I73.9 Peripheral vascular disease, unspecified | CPT/HCPCS: 93880; 93922 ==

== ENCOUNTER → 2025-02-10 08:47 | Outpatient (REF) | payer MEDICARE, SELFPAY | LOC: RAD 08:47 | PROVIDERS: ATTENDING PHYSICIAN Physician Assistant; FAMILY PHYSICIAN Family Medicine; REFERRING PHYSICIAN Internal Medicine | DX: I73.9 Peripheral vascular disease, unspecified (principal); N18.32 Chronic kidney disease, stage 3b | CPT/HCPCS: 76775; 93925; 93978 ==

== ENCOUNTER → 2025-02-22 13:43 | Outpatient (REF) | payer MEDICARE, SELFPAY | LOC: MRI 13:43 | PROVIDERS: ATTENDING PHYSICIAN Neurological Surgery; FAMILY PHYSICIAN Family Medicine | DX: I67.1 Cerebral aneurysm, nonruptured (principal) | CPT/HCPCS: 70544; 76014; 76015 ==

== ENCOUNTER → 2025-05-10 08:29 | Outpatient (REF) | payer MEDICARE, SELFPAY ==
[2025-05-10 13:10] LABS: Hematocrit 36.2 % (37.0-47.0); Hemoglobin 12.0 g/dL (12.0-16.0); Mean Corp Hgb Conc. 33.1 g/dL (33.0-37.0); Mean Corpuscular Volume 100.3 fL (81.0-99.0); Nucleated Red Blood Cells % 0 %; Platelet Count 218 10^3/uL (130-400); Red Cell Dist. Width 13.0 % (11.5-14.5)
[2025-05-10 13:15] LABS: TSH 1.32 uIU/ml (0.47-4.68)
[2025-05-10 13:20] LABS: ALT (SGPT) 23 U/L (0-35); AST (SGOT) 35 U/L (14-36); Albumin 4.4 g/dl (3.5-5.0); Alkaline Phosphatase 69 U/L (38-126); Blood Urea Nitrogen 36 mg/dl (7-17); Calcium 9.5 mg/dl (8.4-10.2); Carbon Dioxide 26 mmol/L (22-30); Chloride 104 mmol/L (98-107); Glucose 102 mg/dl (70-99); HDL Cholesterol 51 mg/dl; LDL Cholesterol, Calculated 60 mg/dl; Magnesium 2.2 mg/dl (1.6-2.3); Potassium 4.6 mmol/L (3.5-5.1); Sodium 137 mmol/L (135-145); Total Protein 7.1 g/dl (6.3-8.2); Very Low Density Lipoprotein 34 mg/dl (0-30); eGFR 45.19
[2025-05-10 14:50] LABS: Glycohemoglobin (HgbA1c) 5.8 % (4.0-5.6)
[2025-05-10 14:54] LABS: Urine Character Clear (Clear)
[2025-05-10 15:11] LABS: Urine Squamous Cell 26-30 /LPF (Few)
[2025-05-10 15:12] LABS: Urine Red Blood Cell 0-2 /HPF (0-2); Urine Urothelial Cell 0-2 /LPF (FEW)
[2025-05-10 15:32] LABS: Microalbumin, Random Urine < 0.6 mg/dl (0.6-1.7)
[2025-05-10 16:25] LABS: Uric Acid 5.6 mg/dl (2.5-6.2)
== END ==
LOC: HWLAB 08:29
PROVIDERS: ATTENDING PHYSICIAN Internal Medicine Hematology & Oncology; FAMILY PHYSICIAN Family Medicine
DX: D47.2 Monoclonal gammopathy (principal); Z00.00 Encounter for general adult medical examination without abnormal findings; E07.9 Disorder of thyroid, unspecified; I10 Essential (primary) hypertension; E78.5 Hyperlipidemia, unspecified; R73.03 Prediabetes; R76.8 Other specified abnormal immunological findings in serum; N18.30 Chronic kidney disease, stage 3 unspecified; R76.9 Abnormal immunological finding in serum, unspecified
CPT/HCPCS: 36415; 80053; 80061; 81003; 81015; 82043; 82784; 83036; 83520; 83521; 83735; 83970; 84100; 84155; 84156; 84165; 84439; 84443; 84550; 85025; 86038; 86334; 86335

== ENCOUNTER → 2025-06-29 12:54 | Outpatient (REF) | payer MEDICARE, SELFPAY ==
[2025-06-29 15:28] LABS: Albumin 4.9 g/dl (3.5-5.0); Blood Urea Nitrogen 39 mg/dl (7-17); Calcium 10.0 mg/dl (8.4-10.2); Carbon Dioxide 28 mmol/L (22-30); Chloride 102 mmol/L (98-107); Glucose 89 mg/dl (70-99); Potassium 4.8 mmol/L (3.5-5.1); Sodium 138 mmol/L (135-145); eGFR 37.56
== END ==
LOC: REG 12:54
PROVIDERS: ATTENDING PHYSICIAN Internal Medicine; FAMILY PHYSICIAN Family Medicine
DX: I10 Essential (primary) hypertension (principal); N18.32 Chronic kidney disease, stage 3b
CPT/HCPCS: 36415; 80069; 82570; 83520; 83970; 84156; 86335